=== PATIENT | male | born 2005 | race African-American/Black ===

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

== ENCOUNTER 2025-01-29 11:10 | Outpatient (REF) | payer MEDICAID, SELFPAY ==
--- OUTSIDE RECORDS SUMMARY | 2025-01-29 12:44 | XMS_ITS | Clinical Summary ---
Author Organization [facility] Address [address] [place] [address] Care Team Providers Care Hand Roller Name Role Phone Netta Peck MD Primary Care Provider [phone] Allergies No known active allergies Medications No known medications Active Problems Problem Noted Date Diagnosed Date Other specified health status 05/17/2023 Overview (01/29/2025): -next physical exam due after 01/29/26 -eye care facilitated by Luci -dental home is [facility] -health care proxy filed 01/29/25 Nocturnal enuresis 10/30/2013 Attention deficit hyperactivity disorder 012 Encounters Date Type Department Care Team Description 01/29/2025 10:00 AM EDT Office Visit [facility] [address] [place] [id number] Netta Peck MD Other specified health status (Primary Dx); Routine screening for STI (sexually transmitted infection); Wears glasses; Encounter for immunization 01/29/2025 Travel 01/19/2025 Patient Outreach [facility] [address] [place] [address] Netta Peck MD Pre-visit Planning (SDOH unable to reach, number disconnected) 12/28/2024 Population Health Risk Score [facility] ([facility]) Department [address] [id number] Provider, Population Health Generic 11/30/2024 Telephone [facility] [address] [place] [phone] Netta Peck MD February Recalls from Last 3 Months Immunizations Immunization Administration Dates Next Due DTaP 03/09/2007, 4,2003,07/16,2003 HPV 9-Valent 10/17/2015 HPV, Quadrivalent 12/26/2014,12/14/2013 Hep A, ped/adol, 2 dose 06/30/2018,10/17/2015 Hep B, Adolescent or Pediatric 2003,2002,2003 Hib (HbOC) 07/03/2004, 4,2003,05/14 IPV 03/09/2007, 4,2003,05/14 Influenza injectable quadriv alent IIV4 with preservative 09/21/2017 Influenza injectable quadriv alent preservative free 07/25/2020,07/06/2019,06/30/2018,09/21,06/25/2016 Influenza, IIV3, injectable 11/04/2011,1 ,10/16/2008,07/15 Influenza, Split (incl. izzy fied surface antigen) 05/29/2013,09/06/2012 MMR 03/19/2004 MMRV 03/09/2007 Meningococcal MCV4P ACYW-135 07/06/2019,12/27/19 15 Pneumococcal Conjugate PCV 7 07/03/2004, 2003,2003,05/14 Tdap 01/29/2025,12/26/2014 Family History Medical History Relation Name Comments Diabetes Father neurology specialist [facility] Mother's Sister Relation Name Status Comments Father Mother's Sister Social History Tobacco Use Types Packs/Day Years Used Date Smoking Tobacco: Never Smokeless Tobacco: Never Tobacco Cessation:Counseling Given: Not Answered Depression Answer Date Recorded Patient Health Questionnaire-9 Score 6 01/29/2025 Patient Health Questionnaire-9 Score 6 01/29/2025 Last PHQ-9: Questionnaire Data Not on file 0 01/29/2025 Housing Stability Answer Date Recorded What is your housing situation today? I have velma lopez 01/29/[address] you li ve. Do you have problems with any of the following? None of the above 01/29/2025 Food Insecurity Answer Date Recorded Within the past 12 months, y ou worried that your food would run out before you got money to buy more: Never True 01/29/2025 Within the past 12 months,th e food you bought just didn't last and you didn't have enough money to get more: Never True Transportation Answer Date Recorded In the past 12 months, has l ack of transportation kept you from medical appts, meetings, work or from getting things needed for daily living? No 01/29/2025 Utilities Answer Date Recorded In the past 12 months, has t he electric, gas, oil or water company threatened to shut off services in your home? I am not sure 01/29/2025 Depression Answer Date Recorded Patient Health Questionnaire-2 Score 1 01/29/2025 Internet Access Answer Date Recorded Internet Access Q1 No 01/29/2025 Internet Access Q2 Not on file 01/29/2025 Sex and Gender Information Value Date Recorded Sex Assigned at Male 06/15/2022 10:19 AM EDT Legal Sex Male 10:19 AM EDT Gender Identity Choose not to disclose 10:19 AM EDT Sexual Orientation Choose not to disclose 2021 10:19 AM EDT Last Filed Vital Signs Vital Sign Reading Time Taken Comments Blood Pressure 132/84 01/29/2025 9:53 AM EDT Pulse 97 01/29/2025 9:53 AM EDT Temperature 37.2 ??C (98.9 ??F) 01/29/2025 9:53 AM ED T Respiratory Rate - - Oxygen Saturation 97% 01/29/2025 9:53 AM EDT Inhaled Oxygen Concentration - - Weight 83.8 kg (184 lb 12.8 oz) 01/29/2025 9:53 AM EDT Height 188 cm (6' 2 ) 01/29/2025 9:53 AM EDT Body Mass Index 23.73 01/29/2025 9:53 AM EDT Plan of Treatment Health Maintenance Due Date Last Done Comments Chlamydia and Gonorrhea Screening 2003 HIV Screening 2003 Hepatitis C Screening 2021 COVID-19 Vaccine () 02/28/2025 Postponed from 04/16/2024 (Supply/Drug Shortage) Influenza Vaccine (Season Ended) 2025 07/25/2020, 07/06/2019, 06/30/2018, Additional history exists Alcohol/Substance Use Screening 01/29/2026 01/29/2025 Depression Screening 01/29/2026 01/29/2025, 01/30/20 25 Disability Screening 01/29/2026 01/29/2025 Family Planning (PISQ) 01/29/2026 01/29/2025 Meningococcal B Vaccine (1 of 2 - Standard) 01/29/2026 Postponed from 2019 (Other Medical Reasons) SDOH Screening 01/29/2026 01/29/2025 Tobacco Screening 01/29/2026 01/29/2025 DTaP/Tdap/Td Vaccines (8 - Td or Tdap) 01/29/2035 01/29/2025, 12/26/2014, 03/09/2007, Additional history exists Zoster Vaccines (1 of 2) 2053 RSV Patients and Patients Aged 60 years or older (1 - 1-dose 75+ series) 2078 Hepatitis B Vaccines Completed 2003, 2003, 2003 HIB Vaccines Completed 07/03/2004, 09/2003, 2003, Additional history exists Pneumococcal Vaccine: Pediatrics (0 to 5 Years) and At-Risk Patients (6 to 49) Years Aged Out 07/03/2004, 2003, 2003, Additional history exists No longer eligible based on patient's age to complete this topic IPV Vaccines Completed 03/09/2007, 09/2003, 2003, Additional history exists HPV Vaccines Completed 10/17/2015, 12/14, 12/14/2013 Hepatitis A Vaccines Completed 06/30/2018, 10/17/19 16 Meningococcal Vaccine Completed 07/06/2019, 015 RSV under 20 months Aged Out No longe r eligible based on patient's age to complete this topic Rotavirus Vaccines Aged Out No longer eligible based on patient's age to complete this topic Insurance [facility] Care Teams Hand Roller Relationship Specialty Start Date End Date [place], [place] Netta [address] [place] [phone] PCP - General Family Medicine 08/16/18
[2025-01-29 14:02] LABS: HIV AB/AG Nonreactive (Nonreactive); HIV Num 1 0.06 S/CO (0.00-0.99); ~HepC Num1 0.13 S/CO (0.00-0.79); ~Hepatitis C Antibody Nonreactive (Nonreactive)
[2025-01-29 14:04] LABS: Syphilis Screen Nonreactive (Nonreactive)
[2025-01-29 14:48] LABS: CT PCR NOT DETECTED (Not Detect.); NG PCR NOT DETECTED (Not Detect.)
== END 2025-01-29 11:11 | disposition home or self-care (01) ==
LOC: HO.HHCL 11:10
PROVIDERS: Visit Provider Family Medicine
DX: Z11.3 Encounter for screening for infections with a predominantly sexual mode of transmission (principal)
CPT/HCPCS: 86780; 86803; 87389; 87491; 87591